=== PATIENT | male | born 1985 | race Two or more races ===

== ENCOUNTER 2024-03-29 08:08 | Emergency (ER) | payer OTHER ==
[~2024-03-29] VITALS: Ht 170.2 cm; Wt 74.8 kg
[2024-03-29 08:20] VITALS: BP 113/76; O2SAT 100
[2024-03-29] MEDS ORDERED: TETANUS & DIPHTHERIA TOX,ADULT 0.5 ML VIAL IM STA (09:00)
[2024-03-29 09:20] LABS: HEMATOCRIT 43.6 % (39.0-48.0); HEMOGLOBIN 14.7 g/dL (13-16.00); MEAN CELL VOLUME 77.5 fL (80.0-100.00); MEAN CORPUSCULAR HGB CONC 33.6 g/dl (32.0-36.0); PLATELET COUNT 309 K/uL (150-450); RED BLOOD COUNT 5.63 M/uL (4.00-6.00); RED CELL DISTRIBUTION WIDTH 14.1 % (11.5-14.5)
[2024-03-29 09:55] LABS: CALCIUM 9.8 mg/dL (8.5-10.1); CREATININE SERUM 1.12 mg/dL (0.70-1.30); GFR 73.37
[2024-03-29 10:07] LABS: POTASSIUM 5.29 mEq/L (3.5-5.1)
== END 2024-03-29 10:53 | disposition home or self-care (01) ==
LOC: ER 08:10
PROVIDERS: General Practice
DX: S01.82XA Laceration with foreign body of other part of head, initial encounter (principal); Y08.89XA Assault by other specified means, initial encounter; Y93.02 Activity, running; Y92.89 Other specified places as the place of occurrence of the external cause; Z88.0 Allergy status to penicillin

== ENCOUNTER 2024-04-06 06:31 | Emergency (ER) | payer OTHER ==
[~2024-04-06] VITALS: Ht 330.2 cm; Wt 74.8 kg
[2024-04-06 06:41] VITALS: BP 118/73; O2SAT 98
== END 2024-04-06 08:25 | disposition home or self-care (01) ==
LOC: ER 06:31
DX: Z48.02 Encounter for removal of sutures (principal); Z88.0 Allergy status to penicillin